=== PATIENT | female | born 1965 ===

== ENCOUNTER 2019-06-04 11:58 | Inpatient (IN) | payer OTHER ==
[~2019-06-04] VITALS: Ht 154.9 cm; Wt 94.8 kg
[2019-06-04] MEDS ORDERED: SYNTHROID175 MCG PO (13:18)
[2019-06-19] MEDS ORDERED: PROTONIX40 MG PO (09:53)
[2019-06-19] MEDS ORDERED: INTESTINEX680 M1 PO (09:54)
[2019-06-19] MEDS ORDERED: PERCOCET 5-3251 EACH PO (09:55)
[2019-06-19] MEDS ORDERED: LEVAQUIN500 MG PO (09:56)
== END 2019-06-19 14:14 | disposition home or self-care (01) | DRG 330 ==
LOC: O/R 06-11 08:52 → SURG 06-11 08:52 → SURH 06-11 11:00 → O/R 06-11 11:15 → SURG 06-11 20:45 → SURH 06-13 14:51
PROVIDERS: ADMIT Surgery
PROC: 07BC4ZX Excision of Pelvis Lymphatic, Percutaneous Endoscopic Approach, Diagnostic (ICD-10-PCS; 2019-06-11)
PROC: 0DBP4ZZ Excision of Rectum, Percutaneous Endoscopic Approach (ICD-10-PCS; 2019-06-11)
PROC: 0D1B4Z4 Bypass Ileum to Cutaneous, Percutaneous Endoscopic Approach (ICD-10-PCS; 2019-06-11)
PROC: 4A19X1Z Monitoring of Respiratory Capacity, External Approach (ICD-10-PCS; 2019-06-11)
PROC: 0DTF4ZZ Resection of Right Large Intestine, Percutaneous Endoscopic Approach (ICD-10-PCS; principal; 2019-06-11 11:00)
PROC: 4A12X4Z Monitoring of Cardiac Electrical Activity, External Approach (ICD-10-PCS; 2019-06-12)
PROC: 4A033R1 Measurement of Arterial Saturation, Peripheral, Percutaneous Approach (ICD-10-PCS; 2019-06-12)
DX: K57.30 Diverticulosis of large intestine without perforation or abscess without bleeding (principal); K56.7 Ileus, unspecified; I12.9 Hypertensive chronic kidney disease with stage 1 through stage 4 chronic kidney disease, or unspecified chronic kidney disease; N18.2 Chronic kidney disease, stage 2 (mild); E03.9 Hypothyroidism, unspecified; D12.0 Benign neoplasm of cecum; R73.01 Impaired fasting glucose